=== PATIENT | female | born 1985 ===

== ENCOUNTER 2020-11-01 05:29 | Inpatient (IN) ==
[2020-11-01] MEDS ORDERED: MEPERIDINE 50 MG/1 ML VIAL IV PRN (06:07)
[2020-11-01] MEDS ORDERED: FAMOTIDINE 20 MG/2 ML VIAL IV PRN (06:07)
[2020-11-01] MEDS ORDERED: ONDANSETRON 4 MG/2 ML VIAL IV PRN ×2 (06:07→21:19)
[2020-11-01] MEDS ORDERED: BUTORPHANOL 2 MG/ML VIAL IV PRN (06:07)
[2020-11-01] MEDS ORDERED: CITRIC ACID/SODIUM CITRATE 30 ML UDCUP PO PRN (06:12)
[2020-11-01] MEDS ORDERED: INFLUENZA VIRUS VACCINE 0.5 ML SYRINGE IM ONE (06:18)
[2020-11-01] MEDS: LACTATED RINGERS 1,000 ML IV SCH ×2 (06:25→16:44)
[2020-11-01 06:27] LABS: Bilirubin,Urine Negative (Negative); Blood, Urine Negative (Negative); Glucose,Urine (UA) Negative (Negative); Ketones,Urine 5 mg/dL (Negative); Mucus,Urine Occasional /LPF (Occasional); Nitrite,Urine Negative (Negative); Protein,Urine 30 MG/DL; RBC,Urine 18 /HPF (0-4); Squamous Epithelial Cell,Urine Occasional /HPF (0-10); Urine Appearance Slightly Hazy (Clear); Urine Color Yellow (Yellow); Urine Specific Gravity 1.026 (1.001-1.035); Urine Urobilinogen < 2.0 EU/DL (0.2-1.0); WBC,Urine 98 /HPF (0-6)
[2020-11-01 06:48] LABS: Basophils % 0.1 % (0.0-0.8); Eosinophils % 0.1 % (0.00-10.9); Hematocrit 39.3 VOL% (35.7-47.0); Hemoglobin 12.7 GM/DL (12.0-16.0); Immature Granulocytes % 0.5 %; Immature Granulocytes Absolute 0.07 #; Lymphocytes # 1.4 10*3/uL (1.4-4.0); Lymphocytes % 9.2 % (21.3-54.2); Mean Corpuscular HGB Conc 32.3 GM/DL (32-36); Mean Corpuscular Volume 87.5 FL (87-102); Mean Platelet Volume 9.8 FL (9.6-12.0); Monocytes % 5.5 % (1.7-12.7); Neutrophils % 84.6 % (38.7-73.9); Platelet Count 261 T/CUMM (130-400); Red Blood Count 4.49 MC/CUMM (3.8-5.5); Red Cell Distribution Width 14.1 % (9.3-17.3); White Blood Count 14.9 T/CUMM (4-12)
[2020-11-01 07:07] LABS: INR 0.9; PT Patient Result 9.3 SECS (9.8-11.9); Partial Thromboplastin Time 27.3 SECS (23.9-33.8)
[2020-11-01 07:25] LABS: Alanine Aminotransferase 12 U/L (13-56); Albumin 2.4 G/DL (3.4-5.0); Alkaline Phosphatase 184 U/L (45-117); Aspartate Amino Transferase 14 U/L (0-37); Bilirubin,Total < 0.39 MG/DL (0.2-1.0); Blood Urea Nitrogen 12 MG/DL (7-18); Calcium 8.6 MG/DL (8.5-10.1); Estimated Glom Filtration Rate 161 ML/MIN; Glucose 118 MG/DL (74-106); Osmolality,Calculated 275.7 MOS/KG (273-304); Total Protein 6.8 G/DL (6.4-8.3)
[2020-11-01] MEDS ORDERED: ePHEDrine 50 MG/ML VIAL IV PRN (07:41)
[2020-11-01] MEDS ORDERED: PROMETHAZINE 25 MG/1 ML VIAL IM ONE (07:41)
[2020-11-01] MEDS ORDERED: diphenhydrAMINE 50 MG/1 ML VIAL IV PRN ×2 (07:41)
[2020-11-01] MEDS ORDERED: NALOXONE 0.4 MG/ML VIAL IV PRN (07:41)
[2020-11-01] MEDS ORDERED: hydrOXYzine HCL 25 MG/1 ML VIAL IM PRN (07:41)
[2020-11-01] MEDS ORDERED: fentaNYL 2 MCG/ROPIV 0.2% EPID 100 ML EPIDURAL SCH (08:00)
[2020-11-01] MEDS ORDERED: LACTATED RINGERS 1,000 ML IV ONE (08:30)
[2020-11-01] MEDS ORDERED: OXYTOCIN/LR 20 UNIT/1,000 ML BAG IV ONE ×2 (10:15→21:19)
[2020-11-01 11:56] LABS: Bacteria,Urine Occasional /HPF (Few); Bilirubin,Urine Negative (Negative); Blood, Urine Negative (Negative); Glucose,Urine (UA) Negative (Negative); Ketones,Urine 20 mg/dL (Negative); Mucus,Urine Moderate /LPF (Occasional); Nitrite,Urine Negative (Negative); Protein,Urine 30 MG/DL; RBC,Urine <1 /HPF (0-4); Squamous Epithelial Cell,Urine Occasional /HPF (0-10); Urine Appearance CLEAR (Clear); Urine Color Yellow (Yellow); Urine Specific Gravity 1.021 (1.001-1.035); Urine Urobilinogen < 2.0 EU/DL (0.2-1.0); WBC,Urine 5 /HPF (0-6)
[2020-11-01] MEDS ORDERED: TRANEXAMIC ACID 1,000 MG/10 ML VIAL ONE (18:57)
[2020-11-01] MEDS ORDERED: miSOPROStoL 200 MCG TABLET ONE (18:57)
[2020-11-01] MEDS ORDERED: CARBOPROST TROMETHAMINE 250 MCG/ML AMP IM ONE ×2 (18:58→20:51)
[2020-11-01] MEDS ORDERED: METHYLERGONOVINE 0.2 MG/1 ML AMP ONE (18:58)
[2020-11-01] MEDS ORDERED: SODIUM CHLORIDE 0.9% 0 ML IV ONE (18:59)
[2020-11-01] MEDS ORDERED: LIDOCAINE 1% 50 ML VIAL ONE (18:59)
[2020-11-01] MEDS ORDERED: OXYTOCIN/LR 30 UNIT/1,000 ML BAG IV ONE (19:49)
[2020-11-01] MEDS ORDERED: TERBUTALINE 1 MG/1 ML VIAL ONE (19:52)
[2020-11-01] MEDS ORDERED: TERBUTALINE 1 MG/1 ML VIAL SUBCUT ONE (19:53)
[2020-11-01] MEDS ORDERED: OXYTOCIN 10 UNIT/ML VIAL ONE (19:53)
[2020-11-01] MEDS ORDERED: ceFAZolin 2,000 MG in PREMIX 1 EACH IV ONE (19:55)
[2020-11-01] MEDS ORDERED: ceFAZolin 3,000 MG in SYRINGE 1 EACH IV ONE (20:00)
[2020-11-01] MEDS ORDERED: LIDOCAINE MPF 2% /EPI 20 ML VIAL ONE (20:10)
[2020-11-01] MEDS ORDERED: propofoL 200 MG/20 ML VIAL IV ONE ×2 (20:29→20:48)
[2020-11-01] MEDS ORDERED: MIDAZOLAM 2 MG/2 ML VIAL ONE (20:29)
[2020-11-01] MEDS ORDERED: LIDOCAINE 2% 5 ML VIAL ONE (20:29)
[2020-11-01] MEDS ORDERED: SUCCINYLCHOLINE 200 MG/10 ML VIAL ONE (20:29)
[2020-11-01] MEDS ORDERED: ONDANSETRON 4 MG/2 ML VIAL ONE (20:30)
[2020-11-01] MEDS ORDERED: fentaNYL 250 MCG/5 ML VIAL ONE (20:30)
[2020-11-01] MEDS ORDERED: ACETAMINOPHEN 1,000 MG/100 ML VIAL IV ONE (20:37)
[2020-11-01] MEDS ORDERED: MORPHINE 10 MG/10 ML VIAL ONE (20:41)
[2020-11-01] MEDS ORDERED: PHENYLEPHRINE 1 MG/10 ML SYRINGE IV ONE (20:50)
[2020-11-01 20:53] LABS: Cord Arterial Blood HCO3 20.7 MMOL/L
[2020-11-01 20:57] LABS: Cord Venous Blood HCO3 21.7 MMOL/L; Cord Venous Blood PCO2 53.4 MMHG; Cord Venous Blood PO2 29.8
[2020-11-01] MEDS ORDERED: RHO(D) IMMUNE GLOBULIN 300 MCG SYRINGE IM ONE (21:19)
[2020-11-01] MEDS ORDERED: ACETAMINOPHEN 325 MG TABLET PO PRN (21:19)
[2020-11-01] MEDS ORDERED: LACTATED RINGERS 1,000 ML IV SCH (21:30)
[2020-11-02 00:20] LABS: Hemoglobin 10.1 GM/DL (12.0-16.0)
[2020-11-02 07:21] LABS: Basophils # 0.1 10*3/uL (0.0-0.2); Basophils % 0.2 % (0.0-0.8); Eosinophils # 0.1 10*3/uL (0.0-0.87); Eosinophils % 0.2 % (0.00-10.9); Hematocrit 29.4 VOL% (35.7-47.0); Immature Granulocytes % 0.7 %; Immature Granulocytes Absolute 0.23 #; Lymphocytes # 0.5 10*3/uL (1.4-4.0); Lymphocytes % 1.6 % (21.3-54.2); Mean Corpuscular HGB Conc 32.7 GM/DL (32-36); Mean Corpuscular Volume 90.2 FL (87-102); Mean Platelet Volume 10.7 FL (9.6-12.0); Monocytes % 3.8 % (1.7-12.7); Neutrophils % 93.5 % (38.7-73.9); Platelet Count 253 T/CUMM (130-400); Red Cell Distribution Width 14.6 % (9.3-17.3)
[2020-11-02 07:22] LABS: Hemoglobin 9.6 GM/DL (12.0-16.0); Red Blood Count 3.26 MC/CUMM (3.8-5.5); White Blood Count 33.4 T/CUMM (4-12)
[2020-11-02 07:50] LABS: Band Neutrophils 7 % (0-10); Segmented Neutrophils 90 % (50-85); Total Cells Counted 100
[2020-11-02 07:51] LABS: Hypochromasia Slight; Platelet Estimate Adequate
[2020-11-02] MEDS: METOCLOPRAMIDE 10 MG TABLET PO SCH ×2 (08:32→15:04)
[2020-11-02] MEDS: DOCUSATE SODIUM 100 MG CAPSULE PO SCH ×2 (08:32→21:00)
[2020-11-02] MEDS: SIMETHICONE CHEW 80 MG TABLET PO PRN ×2 (08:33→19:30)
[2020-11-02] MEDS: MULTIVITAMIN (PRENATAL) TABLET PO SCH (08:33)
[2020-11-02] MEDS: FERROUS SULFATE 325 MG TABLET PO SCH ×2 (08:33→21:00)
[2020-11-02] MEDS: MAGNESIUM HYDROXIDE SUSP 30 ML UDCUP PO PRN (15:04)
[2020-11-02 16:58] LABS: Basophils % 0.1 % (0.0-0.8); Hematocrit 27.7 VOL% (35.7-47.0); Hemoglobin 8.8 GM/DL (12.0-16.0); Immature Granulocytes % 0.7 %; Immature Granulocytes Absolute 0.15 #; Lymphocytes # 1.1 10*3/uL (1.4-4.0); Lymphocytes % 4.9 % (21.3-54.2); Mean Corpuscular HGB Conc 31.8 GM/DL (32-36); Mean Corpuscular Volume 90.2 FL (87-102); Mean Platelet Volume 9.7 FL (9.6-12.0); Monocytes % 5.8 % (1.7-12.7); Neutrophils % 88.5 % (38.7-73.9); Platelet Count 227 T/CUMM (130-400); Red Blood Count 3.07 MC/CUMM (3.8-5.5); Red Cell Distribution Width 14.5 % (9.3-17.3); White Blood Count 22.9 T/CUMM (4-12)
[2020-11-02 17:22] LABS: Anisocytosis Slight; Lymphocytes 4 % (20-55); Segmented Neutrophils 90 % (50-85); Total Cells Counted 100
[2020-11-02 17:23] LABS: Hypochromasia Slight; Platelet Estimate Adequate; Polychromasia Few
[2020-11-02] MEDS: IBUPROFEN 800 MG TABLET PO PRN (19:30)
[2020-11-03] MEDS: METOCLOPRAMIDE 10 MG TABLET PO SCH ×2 (00:45→11:24)
[2020-11-03] MEDS ORDERED: MAGNESIUM CITRATE 300 ML BOTTLE PO ONE (08:53)
[2020-11-03] MEDS: MULTIVITAMIN (PRENATAL) TABLET PO SCH (09:45)
[2020-11-03] MEDS: FERROUS SULFATE 325 MG TABLET PO SCH ×2 (09:45→21:10)
[2020-11-03] MEDS: DOCUSATE SODIUM 100 MG CAPSULE PO SCH ×2 (09:45→21:10)
[2020-11-03] MEDS: IBUPROFEN 800 MG TABLET PO PRN ×2 (11:23→23:56)
[2020-11-03] MEDS: SIMETHICONE CHEW 80 MG TABLET PO PRN (21:10)
[2020-11-04 08:00] LABS: Basophils % 0.2 % (0.0-0.8); Eosinophils # 0.1 10*3/uL (0.0-0.87); Eosinophils % 0.9 % (0.00-10.9); Hematocrit 24.6 VOL% (35.7-47.0); Immature Granulocytes % 0.9 %; Immature Granulocytes Absolute 0.08 #; Lymphocytes # 1.4 10*3/uL (1.4-4.0); Lymphocytes % 15.2 % (21.3-54.2); Mean Corpuscular HGB Conc 32.5 GM/DL (32-36); Mean Corpuscular Volume 88.5 FL (87-102); Mean Platelet Volume 9.9 FL (9.6-12.0); Monocytes % 8.1 % (1.7-12.7); Neutrophils % 74.7 % (38.7-73.9); Platelet Count 221 T/CUMM (130-400); Red Blood Count 2.78 MC/CUMM (3.8-5.5); Red Cell Distribution Width 14.5 % (9.3-17.3); White Blood Count 9.1 T/CUMM (4-12)
[2020-11-04] MEDS ORDERED: SODIUM CHLORIDE 0.9% 1,000 ML IV PRN (09:55)
[2020-11-04] MEDS ORDERED: CLINDAMYCIN 300 MG CAPSULE PO ONE (10:01)
[2020-11-04] MEDS: DOCUSATE SODIUM 100 MG CAPSULE PO SCH ×2 (10:29→22:33)
[2020-11-04] MEDS: MULTIVITAMIN (PRENATAL) TABLET PO SCH (10:29)
[2020-11-04] MEDS: FERROUS SULFATE 325 MG TABLET PO SCH ×2 (10:29→22:34)
[2020-11-04] MEDS: CLINDAMYCIN 300 MG CAPSULE PO SCH (16:57)
[2020-11-04] MEDS: SIMETHICONE CHEW 80 MG TABLET PO PRN (17:02)
[2020-11-04] MEDS ORDERED: MAGNESIUM CITRATE 300 ML BOTTLE PO ONE (18:58)
[2020-11-04] MEDS ORDERED: BISACODYL 10 MG SUPP RECTAL PRN (20:34)
[2020-11-04] MEDS: MAGNESIUM HYDROXIDE SUSP 30 ML UDCUP PO PRN (22:33)
[2020-11-05] MEDS: CLINDAMYCIN 300 MG CAPSULE PO SCH ×3 (00:09→09:12)
[2020-11-05] MEDS: IBUPROFEN 800 MG TABLET PO PRN (01:38)
[2020-11-05 05:59] LABS: Basophils % 0.2 % (0.0-0.8); Eosinophils # 0.2 10*3/uL (0.0-0.87); Eosinophils % 1.8 % (0.00-10.9); Hematocrit 29.9 VOL% (35.7-47.0); Immature Granulocytes % 1.2 %; Lymphocytes # 1.9 10*3/uL (1.4-4.0); Lymphocytes % 22.6 % (21.3-54.2); Mean Corpuscular HGB Conc 32.4 GM/DL (32-36); Mean Corpuscular Volume 88.5 FL (87-102); Monocytes % 8.7 % (1.7-12.7); Neutrophils % 65.5 % (38.7-73.9); Platelet Count 257 T/CUMM (130-400); Red Cell Distribution Width 14.5 % (9.3-17.3); White Blood Count 8.3 T/CUMM (4-12)
[2020-11-05 06:10] LABS: Hemoglobin 9.7 GM/DL (12.0-16.0); Red Blood Count 3.38 MC/CUMM (3.8-5.5)
[2020-11-05] MEDS: FERROUS SULFATE 325 MG TABLET PO SCH (09:10)
[2020-11-05] MEDS: DOCUSATE SODIUM 100 MG CAPSULE PO SCH (09:12)
[2020-11-05 11:17] VITALS: BP 120/79
[2020-11-05] MEDS ORDERED: DIPH/TET/ACEL PERT BOOSTER VACCINE 0.5 ML VIAL IM ONE (11:28)
[2020-11-05] MEDS: MULTIVITAMIN (PRENATAL) TABLET PO SCH (11:40)
== END 2020-11-05 14:25 | disposition home or self-care (01) | DRG 788 ==
LOC: N.LDOUT 05:29 → N.LD 05:30 → N.OB 11-02 07:01
PROVIDERS: ADMIT Obstetrics & Gynecology; ATTEND Obstetrics & Gynecology
PROC: LDCSECT (ICD-10-PCS; 2020-11-01 20:00)